=== PATIENT | female | born 1960 | race Asian ===

== ENCOUNTER 2024-11-17 10:51 | Observation (INO) | payer OTHER, SELFPAY ==
[2024-11-17] VITALS (27 sets, daily range): BP systolic 133–207; BP diastolic 64–114; PULSE 63–88; RESP 13–22; TEMP 35.4–37.2; O2SAT 89–100; BMI 24.1
--- NOTE | 2024-11-17 10:45 | DI.RAD_ITS ---
Exam(s) XR ANKLE LT COMPLETE EXAM: XR ANKLE LT COMPLETE CLINICAL HISTORY: fall, deformity, c/f fracture TECHNIQUE: 2D digital imaging was performed of the left ankle. Three images were obtained. AP, lateral and oblique views were obtained. COMPARISON: No exams were available for comparison FINDINGS: BONES: There is an acute oblique fracture of the distal metaphysis of the left fibula. Its medial component is at the level of the ankle mortise. There is lateral angulation of the distal fracture. There is a comminuted laterally displaced fracture of the medial malleolus. There is a mildly displaced fracture involving the lateral aspect of the posterior malleolus. No bony destructive lesion is seen. There is an enthesophyte at the posterior calcaneus. There is a small plantar calcaneal spur. JOINTS:There is lateral and posterior dislocation of the talar dome relative to the distal tibia. SOFT TISSUE: There is soft tissue swelling around the ankle. IMPRESSION: Trimalleolar fracture dislocation of the left ankle. DATA REPOSITORY: RADIATION DOSE DELIVERED:
--- NOTE | 2024-11-17 11:33 | W.ED.GENAD ---
Discharge Plan Disposition Patient Disposition: Admit to [facility] Condition: Stable Discharge Details Clinical Impression: Trimalleolar fracture of left ankle, Closed dislocation of left ankle Attending Provider: Terrance Stroud Primary Care Provider: None,None ED Provider: Claudia Mahajan [facility] General Mode of arrival: EMS. Date/Time Provider Initiated Documentation: 11/17/24 10:58. Limitations to Documentation: no limitations. Information obtained by: patient, EMS and old records reviewed. HPI Narrative: This is a previously healthy 64-year-old female patient presenting for evaluation after a fall. The patient was carrying her cat down an embankment and tripped, falling and injuring her left ankle. She reports that she did not strike her head, lose consciousness, or injure any other part of her body. She was in her normal state of health prior to this event and did not have preceding dizziness, syncope, chest pain. The patient was noted to have an obvious ankle deformity by fire, was placed in a splint and transported by EMS without intervention. She reports that she is not having pain anywhere else, her pain in her ankle is improved as long as she does not move it, denies numbness or tingling distal to this injury. Related Data Home Medications ?Medication ?Instructions ?Recorded ?Confirmed atorvastatin 10 mg tablet (Lipitor) 10 mg PO DAILY 11/17/24 11/17/24 escitalopram oxalate 10 mg tablet 10 mg PO HS 11/17/24 11/17/24 (Lexapro) tirzepatide 7.5 mg/0.5 mL 7.5 mg subcut QWEEK 11/17/24 11/17/24 subcutaneous pen injector (Mounjaro) Allergies Allergy/AdvReac Type Severity Reaction Status Date / Time povidone-iodine (From AdvReac Mild Skin Rash Verified 11/17/24 11:04 Betadine) General Stated Complaint: Orthopedic HUGO: 3 Exam Narrative Exam Narrative: Gen: Awake and alert, in no apparent distress HEENT: Non-icteric sclera Neck: Supple Lungs: No apparent respiratory distress, normal respiratory effort. CV: Appears well perfused Abdomen: Non-distended MSK: Moves 4 extremities without apparent limitation in ROM with the exception of the left lower extremity. The patient has no injury, tenderness, deformity, or overlying skin changes to the left knee or proximal fibula. The left ankle is obviously deformed with displacement of the left foot lateral compared to the tibia/fibula. No skin breaks. Distal to this injury the patient has full range of motion of her toes, though it does reproduce pain. She has strong DP pulse tenderness and brisk capillary refill, preserved sensation. Skin: Visualized skin without rashes, cyanosis. Neuro: No obvious focal deficits or facial asymmetry. Speaks in full, clear sentences. Psych: Appropriate for situation. Course Vital Signs Vital signs: Vital Signs Temperature 35.4 C L 11/17/24 10:50 Pulse 64 11/17/24 10:50 Respiratory Rate 14 11/17/24 10:50 Blood Pressure 199/114 H 11/17/24 10:50 Pulse Oximetry 100 11/17/24 10:50 Temperature 35.4 C L 11/17/24 10:50 Temperature Source Tympanic 11/17/24 10:50 Pulse 64 11/17/24 10:50 Respiratory Rate 14 11/17/24 10:50 Blood Pressure 199/114 H 11/17/24 10:50 Pulse Oximetry 100 11/17/24 10:50 Oxygen Delivery Method Room Air 11/17/24 10:50 Oxygen Flow Rate 0 11/17/24 10:50 Pain Level 8 11/17/24 10:50 Procedure Orthopedic Splinting/Casting Date of Procedure: 11/17/24 Time of procedure: 14:30 Provider that performed the procedure: Claudia Mahajan Standard Time Out Performed: No Patient Consented: Verbally Pre Procedure Medication: Hydromorphone Amount of pre-procedure medication(mg): 0.5 Side: left Lower Extremity Injury Location: ankle Lower Extremity Immobilizer: posterior splint Weight bearing status: non-weight bearing as tolerated Procedure Description/Note: Requested to place this patient in a posterior splint, without complete reduction as patient is going to the operating room for definitive management of her trimalleolar fracture. She received a dose of Dilaudid for pain management prior to splint placement. The leg was lifted and the great toe gently elevated to bring the leg into a closer to anatomical alignment. A posterior slab splint was placed, using 4 inch Ortho-Glass. This was padded thoroughly, and held in place with an Dnonie wrap. Due to the lack of full reduction the patient's left foot remained in slight external rotation and plantarflexion after this procedure, but she was noted to be neurologically intact. She tolerated the procedure well and without immediate complications. Medical Decision Making This is a 64-year-old female patient presenting for evaluation after a fall. Differential includes but is not limited to ankle fracture, dislocation, my exam is reassuring against neurovascular derangement. There is no evidence for associated knee or hip injury, head strike, etc., and this is a mechanical fall and she did not have any preceding symptoms to make me concerned for medical etiologies of her fall. We will obtain basic preop labs to include CBC, BMP, INR. I will obtain an x-ray of the affected left ankle. I will provide the patient with Tylenol and Dilaudid for initial management of pain. - I independently interpreted the laboratory studies, which show no significant leukocytosis, anemia, or thrombocytopenia. The chemistry panel is without evidence of electrolyte abnormality, kidney dysfunction, or coagulopathy. X-ray reveals a trimalleolar fracture of the left ankle. I consulted Dr. Martin with orthopedics who recommends splinting without reduction, and taking her to the OR for operative management this afternoon. Splint applied as noted above, and the patient was taken to the preop area from our ED without incident. She remained hemodynamically appropriate, calm, and comfortable while under my care. Claudia Mahajan MD [facility] All Active Problems (Updated 11/17/24 @ 15:31 by Claudia Mahajan MD) Closed dislocation of left ankle (Acute) Trimalleolar fracture of left ankle (Acute) Medical History (Updated 11/17/24 @ 15:31 by Claudia Mahajan MD) Diabetes Claustrophobia Anxiety Surgical History (Updated 11/17/24 @ 15:13 by Sharona Pennington) History of surgery on left wrist History of section Social History Smoking/Tobacco Use Status: Never Smoking risk assessment performed?: Yes Alcohol Intake: never Substance use type: does not use Do you feel safe at home: Yes Do you feel safe in your relationship?: Yes
[2024-11-17] MEDS: ACETAMINOPHEN 1,000 MG/100 ML BAG 400 MG IVPB (11:51)
[2024-11-17 12:07] LABS: Abs Immature Grans 0.02 10^3/uL (0.0-0.06); HCT 41.9 % (36.0-46.0); HGB 14.2 g/dL (11.2-15.7); Immature Grans % 0.3 %; MCH 30.3 pg (27.0-33.0); MCHC 33.9 % (32.0-36.0); MCV 90 fL (80-95); MPV 9.7 fL (8.0-11.0); Platelet Count 255 10^3/uL (130-400); RBC 4.68 10^6/uL (3.93-5.22); RDW 12.1 % (11.7-14.6); RDW-SD 39.8 fL; WBC 6.64 10^3/uL (4.4-10.8)
[2024-11-17 12:13] LABS: Anion Gap 8.7 mmol/L (3-11); BUN 8 mg/dL (7-18); CO2 32.3 mmol/L (21.0-32.0); Calcium 8.8 mg/dL (8.5-10.1); Chloride 103 mmol/L (98-107); Estimated GFR 101.42 (mL/min/1.73m2); Glucose 111 mg/dL (74-106); Potassium 3.9 mmol/L (3.5-5.1); Sodium 144 mmol/L (136-145)
[2024-11-17 12:14] LABS: INR 1.0 (0.9-1.1); Prothrombin Time 10.2 sec (9.1-11.1)
--- NOTE | 2024-11-17 12:21 | NUR.NOTE ---
Nursing Note: [id number] This RN brought in pain medication to pt, explained what was ordered and asked if she has ever had strong pain medication in the past patient said Ill just take the Tylenol. Dilaudid dose wasted per policy with another RN
[2024-11-17] MEDS: HYDROmorphone 2 MG/ML SYR 0.5 MG IVP ×2 (12:46→13:42)
--- NOTE | 2024-11-17 13:49 | OCONE_ITS ---
Date of service: 11/17/24 Time of Service: 13:49 Assessment and Plan Assessment and plan (1) Trimalleolar fracture of left ankle: Status: Acute Assessment and plan: 64-year-old female with a closed left ankle trimalleolar fracture and dislocation. Describes carrying her cat this morning, falling, resulting her ankle injury. ER workup reveals a trimalleolar fracture and dislocation. Pain medications have been given and pain is tolerable. Plan is to place into a posterior splint. Good pulses. Denies numbness or tingling. Patient denies any other injury. No pre-existing ankle issues. Patient closed just closed on her house in [place] and is scheduled to close on her house here tomorrow although she does have a place to stay this evening. Last ate this morning. Past medical history includes prediabetes, last A1c of 6.2. Patient does take Mounjaro, last took 5 days ago. History of hyperlipidemia. Patient is resting comfortable. No acute distress. Speaks in full sentences. Left ankle with obvious deformity, external rotation. Skin is intact without erythema. Diffuse swelling and discomfort. Early ecchymosis noted. Hip and knee are nontender. Patient demonstrates ability to wiggle all of her toes. Foot is warm to the touch. Good pedal pulse and capillary refill. No obvious distracting injuries. Left ankle x-ray reviewed, reveals a dislocated trimalleolar fracture. ER will place into a posterior splint. Patient is NPO. Decision to proceed with surgery today 11/17/2024 Left ankle open reduction internal fixation and possible syndesmotic fixation The risks, benefits, and alternatives were thoroughly discussed. Patient was counseled regarding pain management, expected postoperative course, and recovery timeline. All questions were answered. Informed consent was obtained. Agree and understand treatment plan. Follow up 10-14 days after surgery. Will call if any changes or concerns. Breathing comfortably on room air. No coughs or wheezes. 2+ left radial pulse. Regular rate and rhythm. (2) Closed dislocation of left ankle: Status: Acute PFSH All Active Problems (Updated 11/17/24 @ 15:31 by Claudia Mahajan MD) Closed dislocation of left ankle (Acute) Trimalleolar fracture of left ankle (Acute) Medical History (Updated 11/17/24 @ 15:31 by Claudia Mahajan MD) Diabetes Claustrophobia Anxiety Surgical History (Updated 11/17/24 @ 15:13 by Sharona Pennington) History of surgery on left wrist History of section Social History Smoking/Tobacco Use Status: Never Smoking risk assessment performed?: Yes Alcohol Intake: never Substance use type: does not use Do you feel safe at home: Yes Do you feel safe in your relationship?: Yes Results Last Vital Signs Temp 35.4 C L 11/17/24 10:50 Pulse 88 11/17/24 13:12 Resp 14 11/17/24 10:50 BP 175/65 H 11/17/24 13:12 Pulse Ox 100 11/17/24 10:50 Labs 11/17/24 11:48 11/17/24 11:48 Labs: Laboratory Results - last 24 hr 11/17/24 11:48 WBC 6.64 RBC 4.68 Hgb 14.2 Hct 41.9 MCV 90 MCH 30.3 MCHC 33.9 RDW 12.1 Plt Count 255 MPV 9.7 Immature Gran % 0.3 Neutrophils % 71.9 Lymphocytes % 20.2 Monocytes % 5.7 Eosinophils % 1.4 Basophils % 0.5 Nucleated RBC % 0.0 Absolute Neutrophils 4.78 Absolute Lymphocytes 1.34 Absolute Monocytes 0.38 Absolute Eosinophils 0.09 Absolute Basophils 0.03 PT 10.2 INR 1.0 Sodium 144 Potassium 3.9 Chloride 103 Carbon Dioxide 32.3 H Anion Gap 8.7 BUN 8 Creatinine 0.6 Est GFR (CKD-EPI 2020) 101.42 Glucose 111 H Calcium 8.8
--- NOTE | 2024-11-17 14:39 | ANES.PREOP_ITS ---
General Info Date of Service Date Performed: 11/17/24 Height: 5 ft 1 in Weight: 58.06 kg Body Mass Index (BMI): 24.1 Surgical Procedure: Operation Date: 11/17/24 15:25 Proposed Procedure Side Surgeon p Ankle ORIF Left Karlo Martin MD Meds Allergies and Home Medications Allergies Allergy/AdvReac Type Severity Reaction Status Date / Time povidone-iodine (From AdvReac Mild Skin Rash Verified 11/17/24 11:04 Betadine) Home Medication ?Medication ?Instructions ?Recorded atorvastatin 10 mg tablet (Lipitor) 10 mg PO DAILY 11/03 escitalopram oxalate 10 mg tablet 10 mg PO HS 11/17/24 (Lexapro) tirzepatide 7.5 mg/0.5 mL 7.5 mg subcut QWEEK 11/17/24 subcutaneous pen injector (Mounjaro) Current Visit Medications: Current Medications Generic Name Dose Route Start Last Admin Trade Name Freq PRN Reason Stop Dose Admin Ringer's Solution 1,000 mls @ 30 mls/hr 11/17/24 06:00 IV 11/17/24 23:59 INFUSION ALMAS Cefazolin Sodium/Dextrose 2 gm in 50 mls @ 100 mls/hr 11/17/24 06:00 Ancef Duplex IVPB 11/17/24 23:59 PREOP ALMAS Tranexamic Acid/Sodium Chloride 1,000 mg in 100 mls @ 600 mls/hr 11/17/24 06:00 IVPB 11/17/24 23:59 PREOP LAMAS IV Miscellaneous Supplies 1 each 11/17/24 11:00 Iv Access-Emergency Dept IV DIRECTED ALMAS IV Miscellaneous Supplies 1 each 11/17/24 06:00 Iv Access IV 11/17/24 23:59 DIRECTED ALMAS Sodium Chloride 0 ml 11/17/24 10:58 Normal Saline Flush 10 Ml Syr IVP PRN PRN Sodium Chloride 0 ml 11/17/24 20:00 Normal Saline Flush 10 Ml Syr IVP BID ALMAS Sodium Chloride 0 ml 11/17/24 10:58 Normal Saline 10 Ml Vial IJ DIRECTED PRN Sodium Chloride 0 ml 11/17/24 06:00 Normal Saline Flush 10 Ml Syr IV 11/17/24 23:59 PRN PRN Sodium Chloride 0 ml 11/17/24 06:00 Normal Saline 10 Ml Vial IJ 11/17/24 23:59 DIRECTED PRN Sterile Water 0 ml 11/17/24 06:00 Water,Injection,Sterile 10 Ml Vial IJ 11/17/24 23:59 DIRECTED PRN PFSH Active Problems Active Problems: Problem Status Onset Code Closed dislocation of left ankle Acute S93.05XA Trimalleolar fracture of left ankle Acute S82.852A Medical History Medical History (Updated 11/17/24 @ 15:31 by Claudia Mahajan MD) Diabetes Claustrophobia Anxiety Surgical History Surgical History (Updated 11/17/24 @ 15:13 by Sharona Pennington) History of surgery on left wrist History of section Tobacco Smoking/Tobacco Use Status: Never Alcohol Alcohol Intake: never Substance Use Substance use type: does not use Vital Signs and Lab Results Vital Signs Most Recent Vital Signs in EMR: Most Recent Vital Signs Temp Pulse Resp BP Pulse Ox 35.4 C L 66 14 143/72 H 94 11/17/24 10:50 11/17/24 14:20 11/17/24 10:50 11/17/24 14:16 11/17/24 14:20 Lab Results 11/17/24 11:48 11/17/24 11:48 Complete Blood Count: 2 WBC, (4.4-10.8) 6.64 10^3/uL Today, 11:48 RBC, (3.93-5.22) 4.68 10^6/uL Today, 11:48 Hgb, (11.2-15.7) 14.2 g/dL Today, 11:48 Hct, (36.0-46.0) 41.9 % Today, 11:48 Plt Count, (130-400) 255 10^3/uL Today, 11:48 Complete Metabolic Panel: 2 Sodium, (136-145) 144 mmol/L Today, 11:48 Potassium, (3.5-5.1) 3.9 mmol/L Today, 11:48 Chloride, (98-107) 103 mmol/L Today, 11:48 Carbon Dioxide, (21.0-32.0) 32.3 mmol/L H Today, 11:48 BUN, (7-18) 8 mg/dL Today, 11:48 Creatinine, (0.55-1.02) 0.6 mg/dL Today, 11:48 Est GFR (CKD-EPI 2021), (mL/min/1.73m2) 101.42 Today, 11:48 Calcium, (8.5-10.1) 8.8 mg/dL Today, 11:48 Glucose, (74-106) 111 mg/dL H Today, 11:48 Coagulation Panel: 2 INR, (0.9-1.1) 1.0 Today, 11:48 PT, (9.1-11.1) 10.2 sec Today, 11:48 Anesthesia Assessment and Plan Anesthesia History Personal History: No History of Anesthesia Complications Family History: No Family History of Anesthesia Complications Exercise Tolerance Exercise Tolerance: Metabolic Equivalents>4 Pertinent Negatives Pertinent Negatives: No Symptoms of GERD Cardiac & Pulmonary Exam Cardiac Exam: Normal S1/S2 Heart Sounds Pulmonary Exam: Clear Bilateral Breath Sounds Implantable Cardiac Device Does patient have a Pacemaker or an ICD?: No Airway Exam Known Difficult Airway: No Mallampati Class: 2 Mouth Opening: Normal (> 3cm) Thyromental Distance: Less than 3 cm Neck Range of Motion: Full ROM Neck Circumference: Normal Teeth Condition: Normal Dentition and Loose or Chipped (multiple loose teeth) ASA Classification ASA Score: ASA 2 Emergency Case?: No NPO Status NPO Status: NPO Clears >2 hours, Solids >8 hours Anesthesia Plan Resuscitation Status: Full Code Anesthesia Technique: General Anesthesia Airway Planned: Endotracheal Tube Pain Management: Surgeon and patient request nerve block Monitors Used: Standard Monitors Preoperative Comments:: Pt. states she is claustrophobic, after discussion of nerve block, she refuses as she does not want to lose ability to feel and move leg after surgery.
--- NOTE | 2024-11-17 15:00 | DI.RAD_ITS ---
Exam(s) XR ANKLE LT 2V EXAM: XR ANKLE LT 2V CLINICAL HISTORY: fractured left ankle. TECHNIQUE: 2D digital imaging was performed. COMPARISON: No exams were available for comparison FINDINGS: Fluoroscopy provided during ORIF of left ankle fracture. See procedure report for details. IMPRESSION: Radiation exposure index/cumulative dose:Liseth,r= 0.4703 mGy DATA REPOSITORY: RADIATION DOSE DELIVERED:
[2024-11-17] MEDS: Normal Saline Flush 10 ML SYR IVP ×2 (15:25→20:29)
[2024-11-17] MEDS: Lactated Ringers 1,000 ML 30 ML IV ×2 (15:25→20:30)
--- NOTE | 2024-11-17 16:17 | W.PM.DS.N ---
Date of service: 11/17/24 Time of Service: 16:17 DS: Diagnosis Discharge Diagnosis (1) Trimalleolar fracture of left ankle: Status: Acute (2) Closed dislocation of left ankle: Status: Acute Discharge Plan Disposition Patient Disposition: Home Condition: Stable Discharge Details Reason For Visit: Calex-Ankle Fx Attending Provider: Karlo Martin Primary Care Provider: None,None Home Meds and New Rx's Prescriptions: New naproxen 250 mg tablet 250 - 500 mg PO BID PRN (Reason: Moderate pain) Qty: 40 0RF aspirin 81 mg tablet,delayed release (DR/EC) 81 mg PO DAILY 30 Days Qty: 30 0RF oxycodone 5 mg tablet 5 - 10 mg PO Q4H PRN (Reason: Moderate to severe pain) Qty: 18 0RF Continued escitalopram oxalate [Lexapro] 10 mg tablet 10 mg PO HS Mounjaro 7.5 mg/0.5 mL pen injector 7.5 mg subcut QWEEK atorvastatin [Lipitor] 10 mg tablet 10 mg PO DAILY Discharge Instructions Additional Instructions: Surgery: Left ankle open reduction internal fixation 11/17/2024 Activity: Non-weightbearing ankle with crutches. May rest splint gently on ground while standing. Strict elevation to minimize swelling and discomfort. Wiggle toes to improve circulation and prevent stiffness. Physical therapy prescription will be provided on follow-up. Prescriptions: Aspirin 81 mg take 1 daily to prevent a blood clot for 30 days Naproxen 250 mg take 1-2 every 12 hours with a meal as needed for moderate pain Oxycodone 5 mg take 1-2 every 4-6 hours as needed for severe pain You may use [id number] Tylenol (acetaminophen) as needed for mild pain. These pain medications may be taken all at once or in different combinations as needed. Also, recommend Colace (docusate) as a stool softener as surgery and pain medicine cause constipation. You may try [id number] diphenhydramine (Benadryl) 25-50 mg nightly as a sleep aid Dressings: Leave splint and dressing in place until follow-up. Keep clean and dry at all times. Follow-up: 10-[address] Martin You may take off the leg compression stockings this evening at home. You may also leave them on a few days longer if you have a history of leg swelling or edema. Let us know right away if you develop any redness, drainage, fevers, chest pain, or trouble breathing. Do not drink alcohol or drive for at least 24 hours after anesthesia. Please call the office during business hours with any questions or concerns. Discharge Orders Discharge Orders: Discharge Order (Routine); Ordered 11/17/24 Ordered By: Karlo Martin DS: Summary Time Spent with Patient providing and/or coordinating discharge services: Less than 30 minutes Status at Discharge Functional status at discharge: uses cane/walker Overall status at discharge: patient is progressing back to baseline Mental Status: mental status grossly normal Speech and Movement: speech and movement normal Mood: congruent mood Affect: normal affect Exam Psych Mental Status: mental status grossly normal Speech and Movement: speech and movement normal Mood: congruent mood Affect: normal affect DS: Data Vitals/I&O Vitals and I&O: Vital Signs Temperature 36.5 C 11/17/24 14:45 Temperature Source Tympanic 11/17/24 10:50 Pulse 65 11/17/24 14:45 Pulse Rhythm Regular 11/17/24 14:45 Respiratory Rate 16 11/17/24 14:45 Respiratory Depth Normal 11/17/24 14:45 Blood Pressure 150/92 H 11/17/24 14:45 Blood Pressure Mean 97 11/17/24 14:16 Blood Pressure Position Supine 11/17/24 13:12 Pulse Oximetry 98 11/17/24 14:45 Oxygen Delivery Method Room Air 11/17/24 14:45 Oxygen Flow Rate 0 11/17/24 14:45 Pain Level 3 11/17/24 14:45 Intake & Output 11/16/24 11/17/24 11/17/24 23:59 11:59 23:59 Intake Total 100 / 110 Balance 100 110 Weight 58.06 kg 58.06 kg Intake: IV 110 Data Completed and Pending Labs on day of discharge: Labs from last 24 hours 11/17/24 11:48 WBC 6.64 RBC 4.68 Hgb 14.2 Hct 41.9 MCV 90 MCH 30.3 MCHC 33.9 RDW 12.1 Plt Count 255 MPV 9.7 Immature Gran % 0.3 Neutrophils % 71.9 Lymphocytes % 20.2 Monocytes % 5.7 Eosinophils % 1.4 Basophils % 0.5 Nucleated RBC % 0.0 Absolute Neutrophils 4.78 Absolute Lymphocytes 1.34 Absolute Monocytes 0.38 Absolute Eosinophils 0.09 Absolute Basophils 0.03 PT 10.2 INR 1.0 Sodium 144 Potassium 3.9 Chloride 103 Carbon Dioxide 32.3 H Anion Gap 8.7 BUN 8 Creatinine 0.6 Est GFR (CKD-EPI 2020) 101.42 Glucose 111 H Calcium 8.8 PFSH All Active Problems (Updated 11/17/24 @ 15:31 by Claudia Mahajan MD) Closed dislocation of left ankle (Acute) Trimalleolar fracture of left ankle (Acute) Medical History (Updated 11/17/24 @ 15:31 by Claudia Mahajan MD) Diabetes Claustrophobia Anxiety Surgical History (Updated 11/17/24 @ 15:13 by Sharona Pennington) History of surgery on left wrist History of section Social History Smoking/Tobacco Use Status: Never Smoking risk assessment performed?: Yes Alcohol Intake: never Substance use type: does not use Do you feel safe at home: Yes Do you feel safe in your relationship?: Yes Time Spent with Patient Time Spent with Patient: <45 minutes Time was spent: preparing to see the patient(eg.review tests), obtaining and/or reviewing separately otained hiistory and counseling the patient
--- NOTE | 2024-11-17 16:28 | W.PM.OP ---
Operative Note Operative Note PRE-OP DIAGNOSIS: Left trimalleolar ankle fracture dislocation POST-OP DIAGNOSIS: same PROCEDURE: Left trimalleolar ankle fracture ORIF, medial and lateral malleoli, CPT #43250 SURGEON: Karlo Martin [employer]ATE: Preston Covington ANESTHESIA TYPE: Local By Surgeon and General LMA/ETT Refer to Anesthesia Record ESTIMATED BLOOD LOSS: 10 COMPLICATIONS: None Patient was transported to: PACU Patient's condition: stable Implants: Synthes 1/3 tubular plate with 7 holes 2x 4.0 mm cancellous screws and 4x 3.5 mm cortex screw 3.5 mm lag screw 2x 40mm 4.0mm partially threaded cancellous screws medial malleolus Indications: Please see complete medical record for details. Findings: Ankle dislocation readily reducible, no loose body medial gutter, stable syndesmosis to the distal tib-fib joint and stable to testing after fibular fixation. Well reduced small posterior malleolus fracture after medial and lateral reduction fixation. Procedure Description: In the operating room, general anesthesia was induced. The patient was positioned supine on the operating room table. All bony prominences were well-padded. Preoperative antibiotics were administered. The ankle was prepped and draped in the usual sterile fashion. The correct patient, procedure, and side of the procedure were all verified prior to incision. The ankle dislocation was readily reduced. C-arm fluoroscopy showed excellent reduction and alignment medially and laterally with no concerns of loose body medially or interposed tissue. 30 cc of 0.25% bupivacaine containing epinephrine was infiltrated about the planned medial and lateral surgical sites. Curvilinear approach was taken to the medial malleolus, bone exposed, interposed soft tissue swept from the margins, the joint inspected and irrigated, and the medial malleolus provisionally reduced. The direct lateral approach was taken to the distal fibula fracture with the fracture ends having nice fracture beltran, reduced and secured with bone forceps, lag screw was placed with the best trajectory from posterior to anterior, clamps radially removed, and a 7?hole plate contoured to the distal fibula, compressed to the bone proximally and distally followed by bicortical screws proximally and cancellous screws most distally. The medial malleolus was then confirmed be reduced, there was probably some compressive bone loss about the fracture edge, but soft tissues were largely swept aside. Fracture was clamped in place, and secured with 2 4.0 mm partially-threaded screws drilled with fluoroscopic assistance. Manual stress external rotation radiographs showed stable ankle mortise, hardware fixation and excellent reduction, with well reduced small posterior malleolus fracture not requiring any direct exposure or fixation. Medial lateral wounds were copiously irrigated. Subcutaneous tissue was closed using 2-0 Monocryl buried interrupted. 3-0 nylon was used horizontal mattress to close the skin. The incisions were covered with Xeroform, 4 x 4 gauze, sterile soft roll, and the extremity placed into a short leg AO splint with the foot and ankle in a neutral position. The patient awoke from anesthesia without complication and was transferred to the recovery room in a stable condition. Date of Procedure: 11/17/24
[2024-11-17] MEDS: TRANEXAMIC ACID/SOD. CHL. 1,000 MG/100 ML BAG 600 MG IVPB (17:04)
[2024-11-17] MEDS: Bupivacaine 0.25% Pres-Free W/EPI 30 ML VIAL (17:30)
--- NOTE | 2024-11-17 19:11 | W.ANESPOSTOP ---
Postoperative Evaluation Date, Time and Location Date Performed: 11/17/24 Time Performed: 19:11 Patient Location: PACU Vital Signs Most Recent Imported Vital Signs: Most Recent Vital Signs Temp Pulse Resp BP Pulse Ox 36.5 C 71 17 165/84 H 98 11/17/24 19:01 11/17/24 19:01 11/17/24 19:01 11/17/24 19:01 11/17/24 19:01 Pain Score Most Recent Pain Score: Most Recent Pain Score Pain Level 0 11/17/24 18:57 Assessment Mental Status: Arousable with meaningful communication Airway and Respiratory Function: Patent airway with normal (patient baseline) respiratory exam Cardiovascular Function: Hemodynamically Stable Hydration Status: Adequately Hydrated Nausea & Vomiting: No Nausea or Vomiting Pain: Pt. Denies Any Pain Peripheral Nerve Block: Patient did not receive a nerve block
[2024-11-17] MEDS: Acetaminophen 500 MG TAB 1000 MG PO (19:59)
[2024-11-17] MEDS: Escitalopram 10 MG TAB PO (19:59)
[2024-11-17] MEDS: Aspirin E.C. 81 MG TABEC PO (20:00)
[2024-11-17] MEDS: ceFAZolin 1 GM/50 ML BAG IVPB (21:38)
[2024-11-17] MEDS: oxyCODONE 5 MG TAB PO (22:41)
== END 2024-11-17 23:00 | disposition home or self-care (01) ==
LOC: ER 14:02 → SUR 14:42 → MS 19:37
PROVIDERS: Admitting Provider Student in an Organized Health Care Education/Training Program; Emergency Provider Emergency Medicine; Visit Provider Student in an Organized Health Care Education/Training Program
PROC: (CPT 27822; principal; 2024-11-17 15:15)
DX: S82.852A Displaced trimalleolar fracture of left lower leg, initial encounter for closed fracture (principal); E11.9 Type 2 diabetes mellitus without complications; F41.9 Anxiety disorder, unspecified; E78.5 Hyperlipidemia, unspecified; Z79.85 Long-term (current) use of injectable non-insulin antidiabetic drugs; Z79.899 Other long term (current) drug therapy; W17.81XA Fall down embankment (hill), initial encounter
CPT/HCPCS: 27822; 29515; 51701; 76000; 80048; 96365; 96375; 96376; 99285; 73600; 73610; 85025; 85610; G0378; J0131; J0690; J1100; J1171; J2003; J2250; J2371; J2405; J2704

== ENCOUNTER 2024-11-30 14:07 | Outpatient (CLI) | payer OTHER, SELFPAY ==
--- NOTE | 2024-11-30 10:30 | DI.RAD_ITS ---
Exam(s) XR ANKLE LT COMPLETE EXAM: XR ANKLE LT COMPLETE CLINICAL HISTORY: F/U FRACTURE. TECHNIQUE: 2D digital imaging was performed. Three images were obtained. AP, lateral and oblique views were obtained. COMPARISON: XA XR ANKLE LT 2V from 11/17/2024 CR XR ANKLE LT COMPLETE from 11/17/2024 FINDINGS: BONES: There are stable post operative changes following reduction and internal fixation of the left ankle fracture dislocation present. There is stable alignment of the orthopedic hardware fracture components. There is no new fracture or dislocation. There is an enthesophyte at the posterior calcaneus. JOINTS: The joint spaces are well maintained. SOFT TISSUE: There is soft tissue swelling around the ankle. IMPRESSION: Stable postoperative changes. DATA REPOSITORY: RADIATION DOSE DELIVERED:
== END 2024-11-30 14:08 | disposition home or self-care (01) ==
LOC: DIORS 14:07
PROVIDERS: Visit Provider Student in an Organized Health Care Education/Training Program
DX: S82.852A Displaced trimalleolar fracture of left lower leg, initial encounter for closed fracture (principal)
CPT/HCPCS: 73610

== ENCOUNTER 2024-12-28 13:42 | Outpatient (CLI) | payer MEDICAID, SELFPAY ==
--- NOTE | 2024-12-28 10:30 | DI.RAD_ITS ---
Exam(s) XR ANKLE LT COMPLETE EXAM: XR ANKLE LT COMPLETE CLINICAL HISTORY: F/U FRACTURE TECHNIQUE: 2D digital imaging was performed. Three views. COMPARISON: CR XR ANKLE LT COMPLETE from 11/17/2024 CR XR ANKLE LT COMPLETE from 11/30/2024 FINDINGS: BONES: No acute fracture is present. Two screws are again noted in the medial malleolus. The lateral malleolar fixation plate is unchanged in alignment. There stent kin continued healing of the previously noted fractures, faintly visible. No bony destructive lesion is seen. JOINTS:The ankle mortise is normally aligned. No significant joint space narrowing. SOFT TISSUE: Soft tissue swelling remains present. IMPRESSION: Stable hardware alignment. Continued fracture healing. DATA REPOSITORY: RADIATION DOSE DELIVERED:
== END 2024-12-28 13:43 | disposition home or self-care (01) ==
LOC: DIORS 13:42
PROVIDERS: Visit Provider Student in an Organized Health Care Education/Training Program
DX: S82.852A Displaced trimalleolar fracture of left lower leg, initial encounter for closed fracture (principal)
CPT/HCPCS: 73610

== ENCOUNTER 2025-02-07 11:50 | Outpatient (CLI) | payer MEDICAID, SELFPAY ==
--- NOTE | 2025-02-07 10:15 | DI.RAD_ITS ---
Exam(s) XR ANKLE LT COMPLETE EXAM: XR ANKLE LT COMPLETE CLINICAL HISTORY: F/U FRACTURE TECHNIQUE: 2D digital imaging was performed. Three views. COMPARISON: CR XR ANKLE LT COMPLETE from 11/30/2024 CR XR ANKLE LT COMPLETE from 12/28/2024 FINDINGS: BONES: Stable hardware in fracture alignment. Some interval fracture healing. No acute fracture is present. No bony destructive lesion is seen. Small enthesophyte at the Achilles insertion. JOINTS:The ankle mortise is normally aligned. Mild degenerative changes of the tibiotalar joint. SOFT TISSUE: Swelling remains present around the malleoli. IMPRESSION: Stable hardware and fracture alignment DATA REPOSITORY: RADIATION DOSE DELIVERED:
== END 2025-02-07 11:51 | disposition home or self-care (01) ==
LOC: DIORS 11:51
PROVIDERS: Visit Provider Physician Assistant
DX: S82.852A Displaced trimalleolar fracture of left lower leg, initial encounter for closed fracture (principal)
CPT/HCPCS: 73610